=== PATIENT | male | born 1990 | race Asian ===

== ENCOUNTER 2019-03-31 16:30 | Emergency (ER) | payer BC ==
[~2019-03-31] VITALS: Ht 175.3 cm; Wt 77.1 kg
[~2019-03-31 16:30] MED LIST: HYDROCODON-ACE1 EA15 ORAL; IBUPROFEN600 MG ORAL
[2019-03-31] MEDS ORDERED: OMEPRAZOLE20 M2 ORAL (17:18)
[2019-03-31] MEDS ORDERED: NAPROXEN500 M2 ORAL (17:18)
--- NOTE | 2019-03-31 17:18 | Emergency Room Report ---
History of Present Illness General Chief Complaint: Pain Source: Patient Present Illness HPI 28-year-old male with no significant past medical history here complaining of worsening rib pain following fracture x1 week ago. She initially came here a week ago and proper imaging was done and was diagnosed with right-sided rib fracture given a prescription for limited hydrocodone and told to follow-up with a primary care provider. She has not yet followed up with a primary care provider nor has been referred to hydrotechnical specialist has been taking hydrocodone complaining of medication not working and now he is having pain all over your right side of his body. Denies any new injury, shortness of breath, palpitation, chest pain, dizziness. Patient reports that he is currently fasting and at first he refuses injection of Toradol however after finalize his discharge paperwork with oral pain medication he decides to get the injection. Patient is rating the pain 3 out of 10 with radiation denying tingling and numbness also c/o acid refulx post taking iburpofen. Allergies: Coded Allergies: No Known Allergies (Unverified , 03/23/19) Patient History Past Medical History: see triage record Past Surgical History: unable to obtain Pertinent Family History: none Immunizations: UTD Reviewed Nursing Documentation: PMH: Agreed; PSxH: Agreed Nursing Documentation-PMH Past Medical History: No Stated History Review of Systems All Other Systems: negative except mentioned in HPI Physical Exam Vital Signs Date Time Temp Pulse Resp B/P (MAP) Pulse Ox O2 Delivery O2 Flow Rate FiO2 03/31/19 16:40 98.4 74 18 130/87 (101) 99 Room Air Sp02 EP Interpretation: reviewed, normal General Appearance: normal inspection, well appearing, no apparent distress Head: normocephalic, atraumatic Eyes: bilateral eye normal inspection, bilateral eye PERRL ENT: normal ENT inspection, hearing grossly normal, normal pharynx, no angioedema Neck: normal inspection, full range of motion Respiratory: normal inspection, chest non-tender, lungs clear, normal breath sounds, no rhonchi, no respiratory distress, no retraction, no wheezing Cardiovascular #1: normal inspection, normal peripheral pulses, regular rate, rhythm, no edema, no murmur Gastrointestinal: normal inspection, non tender, soft Genitourinary: no CVA tenderness Musculoskeletal: back normal, digits/nails normal, gait/station normal Neurologic: normal inspection, alert, oriented x3, responsive Psychiatric: normal inspection, judgement/insight normal Skin: normal inspection, normal color, no rash Lymphatic: normal inspection, no adenopathy Medical Decision Making PA Attestation All my diagnosis and treatment plans were reviewed ad discussed with my supervising physician Dr. Rodriguez Diagnostic Impression: Primary Impression: Rib pain Additional Impression: Acute gastritis ER Course 28-year-old male with no significant past medical history here complaining of worsening rib pain following fracture x1 week ago. She initially came here a week ago and proper imaging was done and was diagnosed with right-sided rib fracture given a prescription for limited hydrocodone and told to follow-up with a primary care provider. She has not yet followed up with a primary care provider nor has been referred to hydrotechnical specialist has been taking hydrocodone complaining of medication not working and now he is having pain all over your right side of his body. Denies any new injury, shortness of breath, palpitation, chest pain, dizziness. Patient reports that he is currently fasting and at first he refuses injection of Toradol however after finalize his discharge paperwork with oral pain medication he decides to get the injection. Patient is rating the pain 3 out of 10 with radiation denying tingling and numbness. also c/o acid refulx post taking iburpofen. Ddx considered but are not limited to: chest contusion, rib fracture, gastritis , peptic ulcer Vital signs: are WNL, pt. is afebrile H&PE are most consistent with gastritis and rib fracture second encounter ORDERS: toradol, naproxen, omeprazole ED INTERVENTIONS: toradol 30mg IM DISCHARGE: At this time pt. is stable for d/c to home. Will provide printed patient care instructions, and any necessary prescriptions. Care plan and follow up instructions have been discussed with the patient prior to discharge. No x-ray necessary at this point patient to follow-up with the primary care physician I explained to him that rib fracture takes time to be healed and there is no bracing or casting to be done and stable at time of discharge Last Vital Signs Date Time Temp Pulse Resp B/P (MAP) Pulse Ox O2 Delivery O2 Flow Rate FiO2 03/31/19 16:40 98.4 74 18 130/87 (101) 99 Room Air Disposition: HOME, SELF-CARE Condition: Stable Scripts Omeprazole (OMEPRAZOLE) 20 Mg Capsule. 20 MG ORAL DAILY, #20 CAP Prov: Rj Chinchilla 03/31/19 Naproxen* (NAPROXEN*) 500 Mg Tablet 500 MG ORAL TWICE A DAY, #30 TAB Prov: Rj Chinchilla 03/31/19 Patient Instructions: Gastritis, Adult, [id number], Rib Fracture, Easy-to- Read Additional Instructions: Follow-up with the primary care provider for referral to hydrotechnical specialist Rj Chinchilla Mar 31, 2019 17:18
[2019-03-31] MEDS ORDERED: Ketorolac 30mg Inj ONE (17:24)
[2019-03-31 17:25] VITALS: BP 130/87
[2019-03-31 17:29] VITALS: BP 130/87
[2019-03-31] MEDS ORDERED: Ketorolac 30mg Inj IM ONE (17:30)
--- NOTE | 2019-03-31 17:39 | NUR ---
ED Nurse Note: pt c/o rt rib pain ermd eval done pt medicated given aci and script verbalized understanding ambulated out of er with strong steady gait.
== END 2019-03-31 17:39 | disposition home or self-care (01) ==
LOC: EMR 17:16
DX: R07.81 Pleurodynia (principal); K29.00 Acute gastritis without bleeding
CPT/HCPCS: 96372; 99283; J1885